=== PATIENT | female | born 1985 | race Two or more races ===

== ENCOUNTER 2021-10-28 12:08 | Emergency (ER) | payer MEDICAID ==
[2021-10-28] MEDS ORDERED: Acetaminophen 500 MG Tab PO ONE (15:15)
== END 2021-10-28 15:41 | disposition home or self-care (01) ==
LOC: JP.ED 12:08 → EDBD 12:08 → JP.ED 15:41
DX: O20.0 Threatened abortion (principal); O98.811 Other maternal infectious and parasitic diseases complicating pregnancy, first trimester; B37.3 Candidiasis of vulva and vagina; Z88.8 Allergy status to other drugs, medicaments and biological substances; Z3A.08 8 weeks gestation of pregnancy
CPT/HCPCS: 36415; 76705; 81001; 84702; 85025; 86140; 86900; 86901; 99284; A9270